=== PATIENT | male | born 1985 | race Caucasian/White ===

== ENCOUNTER 2021-10-19 09:34 | Emergency (ER) | payer OTHER ==
[~2021-10-19] VITALS: Ht 170.2 cm; Wt 140.6 kg
[~2021-10-19 09:34] MED LIST: NORCO 5-325 TA1 EACH PO
[2021-10-19] MEDS ORDERED: PROCTO-MED HC28 GM TOP (09:53)
[2021-10-19] MEDS ORDERED: CEPHALEXIN500 M1 PO (10:39)
== END 2021-10-19 11:08 | disposition home or self-care (01) ==
LOC: ED 09:34
DX: K61.1 Rectal abscess (principal); G47.33 Obstructive sleep apnea (adult) (pediatric); Z79.899 Other long term (current) drug therapy
CPT/HCPCS: 99283; A9270